=== PATIENT | male | born 1960 | race Two or more races ===

== ENCOUNTER 2021-03-25 00:41 | Emergency (ER) | payer MEDICAID, OTHER ==
[~2021-03-25] VITALS: Ht 180.3 cm; Wt 95.3 kg
[2021-03-25 00:43] VITALS: BP 162/92
[2021-03-25] MEDS ORDERED: cloNIDine HCL 0.1 MG TAB PO ONE ×2 (02:15)
== END 2021-03-25 02:15 | disposition left against medical advice (07) ==
LOC: ER 00:41
DX: I10 Essential (primary) hypertension (principal); Z02.89 Encounter for other administrative examinations